=== PATIENT | male | born 1955 | race African-American/Black ===

== ENCOUNTER 2019-07-22 18:55 | Emergency (ER) | payer MEDICAID ==
[~2019-07-22] VITALS: Ht 170.2 cm; Wt 80.0 kg
[2019-07-22 18:59] VITALS: BP 140/75
[2019-07-22] MEDS ORDERED: ATOR20TA PO (19:06)
[2019-07-22] MEDS ORDERED: QUET50TA PO (19:06)
[2019-07-22] MEDS ORDERED: TRAZ-252 PO (19:06)
== END 2019-07-23 02:00 | disposition left against medical advice (07) ==
LOC: ER 18:55 → EDBD 18:55 → ER 07-23 02:00
DX: Z53.21 Procedure and treatment not carried out due to patient leaving prior to being seen by health care provider (principal); F31.9 Bipolar disorder, unspecified; I10 Essential (primary) hypertension; F20.9 Schizophrenia, unspecified; Z85.9 Personal history of malignant neoplasm, unspecified